=== PATIENT | female | born 1975 | race Caucasian/White ===

== ENCOUNTER 2021-06-04 01:21 | Emergency (ER) | payer MEDICAID ==
[~2021-06-04] VITALS: Ht 149.9 cm; Wt 72.6 kg
[2021-06-04 01:21] VITALS: BP_SYST 127
--- NOTE | 2021-06-04 01:21 | NUR ---
Patient to ER bed 5 to gown for evaluation. Side rails up. Report given to YULIA IBRAHIM.
--- NOTE | 2021-06-04 01:22 | NUR ---
Came in ER per gurdoris brought by [facility] paramedics from home this 45 year old female, AAOX4, breathing spontaneously at room air, not in distress noted. With chief complaints generalized itchiness and rashes, mild shortness of breathe, doesn't know the cause. No known medical/ no surgical history, Allergy to Metoclopramide and beer.Vital signs stable
--- NOTE | 2021-06-04 01:38 | NUR ---
Seen and examined by Dr. Kamara
[2021-06-04] MEDS ORDERED: FAMOTIDINE 20 MG TABLET PO ONE (01:45)
[2021-06-04] MEDS ORDERED: FAMOTIDINE 20 MG TABLET ONE (01:50)
--- NOTE | 2021-06-04 01:56 | NUR ---
Initially refused to take PO meds, DR. Kamara informed and discussed the treatment, apparently agreed to try to take medication, Health teaching provided, still needs re-inforcement
[2021-06-04] MEDS ORDERED: DIPHENHYDRAMINE HCL 12.5 MG/5 ML UDC PO ONE (02:00)
[2021-06-04] MEDS ORDERED: predniSONE 20 MG TABLET PO ONE (02:00)
--- NOTE | 2021-06-04 03:01 | NUR ---
Feel better and wanted to go home, Dr. Kamara made aware
[2021-06-04] MEDS ORDERED: PRED20TA PO (03:16)
[2021-06-04] MEDS ORDERED: EPIN0.3P3 IM (03:16)
[2021-06-04] MEDS ORDERED: DIPH-934 PO (03:16)
[2021-06-04] MEDS ORDERED: FAMO-132 PO (03:16)
[2021-06-04 03:23] VITALS: BP_SYST 123
--- NOTE | 2021-06-04 03:23 | NUR ---
Patient given written and verbal discharge instructions and verbalizes understanding. ER MD discussed with patient the results and treatment provided. Patient in stable condition. ID arm band removed. Rx of EPI-PEN, PREDNISONE, FAMOTIDINE given. Patient educated on pain management and to follow up with PMD. Pain Scale 0/10. Opportunity for questions provided and answered. Medication side effect fact sheet provided.
== END 2021-06-04 03:23 | disposition home or self-care (01) ==
LOC: SED 01:21
DX: T78.40XA Allergy, unspecified, initial encounter (principal); Z79.899 Other long term (current) drug therapy; Z88.8 Allergy status to other drugs, medicaments and biological substances; X58.XXXA Exposure to other specified factors, initial encounter
CPT/HCPCS: 99284; J7512